=== PATIENT | male | born 1995 | race Caucasian/White ===

== ENCOUNTER 2017-01-27 11:57 | Day surgery (SDC) | payer MEDICAID | END 2017-01-27 17:10 | disposition home or self-care (01) | LOC: D.OPS 11:57 | DX: S62.307A Unspecified fracture of fifth metacarpal bone, left hand, initial encounter for closed fracture (principal); F17.200 Nicotine dependence, unspecified, uncomplicated; Z01.812 Encounter for preprocedural laboratory examination ==

== ENCOUNTER → 2017-02-24 12:19 | Day surgery (SDC) | payer MEDICAID ==
[2017-01-27 12:52] VITALS: BMI 23.1
[~2017-02-24 12:19] MED LIST: MEPERIDINE HCL50 MG PO
== END | disposition home or self-care (01) ==
LOC: D.OPS 12:19
DX: Z47.2 Encounter for removal of internal fixation device (principal); Z01.810 Encounter for preprocedural cardiovascular examination; Z01.811 Encounter for preprocedural respiratory examination; Z01.812 Encounter for preprocedural laboratory examination; Z53.9 Procedure and treatment not carried out, unspecified reason